=== PATIENT | female | born 1950 | race Caucasian/White ===

== ENCOUNTER 2019-04-15 07:24 | Emergency (ER) | payer OTHER ==
[~2019-04-15] VITALS: Ht 157.5 cm; Wt 72.6 kg
[2019-04-15] MEDS ORDERED: LEVOTHYROXINE175 MCG PO (07:27)
[2019-04-15] MEDS ORDERED: DOXYCYCLINE 10100 M2 PO (07:27)
[2019-04-15] MEDS ORDERED: CLEOCIN HCL150 MG PO (07:27)
[2019-04-15 08:12] VITALS: BP 137/81
== END 2019-04-15 08:13 | disposition home or self-care (01) ==
LOC: ER 07:24
DX: S61.451D Open bite of right hand, subsequent encounter (principal); Z29.14 Encounter for prophylactic rabies immune globulin; Z88.0 Allergy status to penicillin; W55.51XD Bitten by raccoon, subsequent encounter